=== PATIENT | male | born 1975 | race Caucasian/White ===

== ENCOUNTER 2017-04-18 22:20 | Emergency (ER) | payer BC, OTHER ==
[2017-04-18] MEDS ORDERED: SULFAMETHOXAZOLE/TRIMETHOPRIM 1 TAB TABLET PO ONE (23:31)
--- NOTE | 2017-04-18 23:32 | ERNOTE ---
Medical Problem HPI - Narrative Date of Service: 04/18/17 - General Chief Complaint: General Assessment Time Seen by Provider: 04/18/17 23:27 Source: patient, family, RN notes reviewed Exam Limitations: no limitations - Immun/Allergies/Home Medications Immunizations: IMMUNIZATION HX Immunizations Up to Date Yes Allergies/Adverse Reactions: Allergies Penicillins Allergy (Verified 04/18/17 22:47) Home Medications: HOME MEDICATIONS Dextroamphetamine/Amphetamine [Adderall 30 mg Tablet] 30 mg PO DAILY 04/18/17 [ Last Taken Unknown] Venlafaxine HCl [Effexor Xr] 75 mg PO DAILY 04/18/17 [Last Taken Unknown] metFORMIN HCL [Fortamet] 1,000 mg PO BID 04/18/17 [Last Taken Unknown] Sulfamethoxazole/Trimethoprim [Bactrim Ds] 1 tab PO BID #20 tab 04/19/17 [Last Taken Unknown] - History of Present History Narrative: Andrea is a 41 year old male who presents to the er with a rash. states that he had melanoma removed from the left side of his neck on 04/16/17. since then he has developed erythema surrounding the incision with multiple small white pustules on the incision. no fever, chills. Timing: getting worse Severity: moderate Review of Systems - Review of Systems Constitutional: Present: no symptoms reported EYE: Present: no symptoms reported ENT: Present: no symptoms reported Respiratory: Present: no symptoms reported Cardiology: Present: no symptoms reported Gastrointestinal/Abdominal: Present: no symptoms reported Genitourinary: Present: no symptoms reported Musculoskeletal: Present: no symptoms reported Skin: Present: See HPI, rash, lesions Neurological: Present: no symptoms reported Endocrine: Present: no symptoms reported Hematologic/Lymphatic: Present: no symptoms reported Psych: Present: no symptoms reported All Other Systems: All systems neg except as marked - Patient's Past Medical History Patient History - Medical: No pertinent hx, Anxiety, Diabetes Type 2 Patient History - Cancer: Melanoma - Social History Living Situations: home Smoking Status: Current every day smoker Patient requests Smoking Cessation Consult: No Initiate information on Smoking Cessation: No Alcohol Use: none Drug Use: none - Immunizations Immunizations Up to Date: Yes Physical Exam - Physical Exam General Appearance: Present: wd/wn, alert, severe distress, other - non-tonix appearence. dirty appearence. Eye Exam: Normal inspection: bilateral Neck: Present: supple Respiratory: Present: no respiratory distress, normal breath sounds, no accessory muscle use, chest nontender, lungs clear Cardiovascular/Chest: Present: regular rate, rhythm, normal peripheral pulses Peripheral Pulses: N=norm/S=strong/W=weak/B=bound/A=absent: Femoral (R): Strong , Femoral (L): Strong, Dorsalis-pedis (R): Strong, Dorsalis-pedis (L): Strong Gastrointestinal/Abdominal: Present: nontender, nondistended, soft Rectal Exam: Present: deferred Male Genitals Exam: Present: deferred Back Exam: Present: normal inspection, no CVA tenderness Extremity Exam: Present: normal inspection, non-tender, no edema Neurological Exam: Present: alert, oriented, normal mood/affect, no motor/ sensory deficits Skin Exam: Present: normal color, warm/dry, other - left side of neck has sutured incision present with multiple small white pustules. surrounding the incision is a small to moderate size of erythema. appears to be more superficial. of note: pt has 2 or 3 other pustules noted on his chest. ED Progress - Vital Signs Vital Signs: Vital Signs 04/18/17 22:42 Temperature 36.9 C Pulse Rate 86 Respiratory 18 Rate Blood Pressure 125/45 O2 Sat by Pulse 98 Oximetry - Progress/Reassessment Chief Complaint: General Assessment Progress:: Improved Departure - Departure Clinical Impression: Cellulitis of neck Disposition: Home self-care Condition: Good Instructions: Cellulitis, Adult, [id number] Additional Instructions: continue any incision care as previously instructed. Call sql developer's office on thursday to notify of ER visit. You have been given a dose of antibiotic in the ER. The next dose is due tomorrow morning. Push fluids while on oral antibiotics. Referrals: Kurt Singh MD [Primary Care Provider] - Prescriptions: Sulfamethoxazole/Trimethoprim [Bactrim Ds] 1 tab PO BID #20 tab
[2017-04-18] MEDS ORDERED: SULFAMETHOXAZOLE/TRIMETHOPRIM 1 TAB TABLET ONE (23:33)
--- OUTSIDE RECORDS SUMMARY | 2017-04-18 23:33 | XMS REPORT | Continuity of Care Document ---
:1975 Author Organization [facility] [address] Care Team Providers Name Role Phone Unavailable Primary Care Provider Unavailable Source Comments This disclosure is being made pursuant to the [email or web address] program and maynot contain all information available regarding this patient.[facility] Active Allergies and Adverse Reactions Not on File Current Medications Be aware that medications may not be up to date as of this document. Alwaysverify current medications with the patient. Not on file Active Problems Not on file Social History Tobacco Use Types Packs/Day Years Used Date Never Assessed Plan of Care Health Maintenance Due Date Last Done Comments Retired-Pertussis Vaccine Adult 1996 Retired-Tetanus Vaccine Adult 1996 Retired-INFLUENZA VACCINE 07/10/2015 Results from Last 3 Months Not on file
--- OUTSIDE RECORDS SUMMARY | 2017-04-18 23:33 | XMS REPORT | Continuity of Care Document ---
:1975 Author Organization [facility] ([facility]) Address [address] [place] [address] Phone [phone] Care Team Providers Name Role Phone Kurt Singh Primary Care Provider [phone] Source Comments This disclosure is being made pursuant to the Care Everywhere program, applicable federal and state laws, and may not contain all informaitonavailable regarding this patient.[facility] ([facility]) Active Allergies and Adverse Reactions Allergen Noted Date Severity Reactions Comments Penicillins 08/08/2013 OTHER Current Medications Prescription Sig. Disp. Refills Start Date End Date Status dextroamphetamine-amphet Take 30 mg by Active amine 30 mg XR capsule mouth Every morning. venlafaxine 150 mg XR Take 150 mg by Suspended tablet mouth daily. ibuprofen PO Take by mouth as Suspended needed. Active Problems Problem Noted Date Melanoma 08/08/2013 Social History Tobacco Use Types Packs/Day Years Used Date Current Every Day Smoker Cigarettes 1.5 Smokeless Tobacco: Never Used Tobacco Cessation:Counseling Given: Yes Comments: Alcohol Use Drinks/Week oz/Week Comments Yes Last Filed Vital Signs Vital Sign Reading Time Taken Blood Pressure 137/86 03/23/2014 3:03 PM CDT Pulse 80 03/23/2014 3:03 PM CDT Temperature 36.9 C (98.4 F) 03/23/2014 3:03 PM CDT Respiratory Rate 16 03/23/2014 3:03 PM CDT Height 1.86 m (6' 1.23") 03/23/2014 3:03 PM CDT Weight 120.3 kg (265 lb 3.4 oz) 03/23/2014 3:03 PM CDT Body Mass Index 34.77 03/23/2014 3:03 PM CDT Oxygen Saturation 96% 03/23/2014 3:03 PM CDT Plan of Care Health Maintenance Due Date Last Done Comments Hepatitis B Vaccine (1 of 3 - Primary Series) 1975 Tdap Vaccine 1988 Lipid Disorder Screening 1995 MMR Vaccine 1995 Td Vaccine 1995 Pneumococcal Vaccine (1 of 3 - PCV13) 1996 Influenza Vaccine: Seasonal (#1) 06/09/2016 Results from Last 3 Months Not on file
[2017-04-18 23:45] LABS: Hemoglobin 17.7 gm/dL (13.5-18.0); Mean Cell Volume 82.5 fl (78-100); Mean Corpuscular Hemoglobin 28.6 pg (27-31); Mean Corpuscular Hgb Conc 34.7 g/dl (32-36); Neutrophil # 7.7 K/mm3 (1.3-6.0); Neutrophil % 59.1 % (42-75.0); Platelet Count 290 K/mm3 (150-450); Red Blood Count 6.18 M/mm3 (4.7-6.0); Red Cell Distribution Width 13.2 % (11.5-14.0)
[2017-04-19 00:30] LABS: Albumin * 3.6 gm/dl (3.4-5.0); Anion Gap 14.7 mmol/L (6.8-13.8); Bilirubin, Total 0.3 mg/dL (0.0-1.1); Ca. Corrected For Albumin 9.3 mg/dL (8.4-10.2); Calcium * 9.3 mg/dL (7.9-10.9); Carbon Dioxide 25.5 mmol/L (24-32.6); Potassium 4.2 mmol/L (3.4-4.6); Total Protein 7.2 gm/dL (6.2-8.2)
[2017-04-19 01:19] VITALS: BP 123/87
== END 2017-04-19 00:45 | disposition home or self-care (01) ==
LOC: ER 22:20
DX: L03.221 Cellulitis of neck (principal); Z72.0 Tobacco use